=== PATIENT | female | born 1940 | race Caucasian/White ===

== ENCOUNTER 2019-09-05 13:28 | Emergency (ER) | payer MEDICARE ==
[2019-09-05 15:02] LABS: BASOPHILS % (AUTO) 0.5 % (0.0-5.0); HEMATOCRIT 37.1 % (36-48); MEAN CORPUSCULAR HEMOGLOBIN 32.8 pg (27.0-33.0); MEAN CORPUSCULAR HGB CONC 34.1 g/dL (32.0-36.0); MEAN CORPUSCULAR VOLUME 96.5 fL (79-99); NEUTROPHILS % (AUTO) 75.5 % (40.0-77.0); NUCLEATED RED BLOOD CELLS 0.1 % (0.0-0.19); PLATELET COUNT (AUTO) 252 K/uL (130-400); RED BLOOD CELL COUNT(AUTO) 3.85 MIL/uL (4.00-5.50); RED CELL DISTRIBUTION WIDTH 14.7 % (11.0-15.5); WHITE BLOOD COUNT (AUTO) 5.9 K/uL (4.8-10.8)
[2019-09-05 15:16] LABS: CREATININE 1.1 mg/dL (0.5-1.5); PARTIAL THROMBOPLASTIN TIME 55.3 SEC (26.3-35.5)
[2019-09-05 15:18] LABS: ALBUMIN 3.3 g/dL (3.5-5.0); BILIRUBIN,TOTAL 0.3 mg/dL (0.2-1.0); TOTAL PROTEIN, SERUM 6.8 g/dL (6.0-8.3)
[2019-09-05 15:46] LABS: INR 4.4 (0.85-1.15); PROTHROMBIN TIME 43.6 SEC (9.6-11.6)
[2019-09-05] MEDS ORDERED: KETOROLAC TROMETHAMINE 15MG/ML ONE (17:21)
[2019-09-05] MEDS ORDERED: DEXAMETHASONE SOD PHOSPHATE 4 MG/ML 1ML VIAL ONE (17:25)
== END 2019-09-05 18:18 | disposition home or self-care (01) ==
LOC: EDH 13:28
DX: M54.5 Low back pain (principal); M48.00 Spinal stenosis, site unspecified; R79.1 Abnormal coagulation profile; Z98.890 Other specified postprocedural states
CPT/HCPCS: 36415; 72131; 80053; 85025; 85610; 85730; 96374; 96375; 99285; J1100; J1885

== ENCOUNTER → 2019-09-22 | Outpatient (CLI) | payer MEDICARE | END | disposition home or self-care (01) | LOC: RAH 11:24 | PROVIDERS: ATTEND Nurse Practitioner Adult Health | DX: M48.061 Spinal stenosis, lumbar region without neurogenic claudication (principal); M51.36 Other intervertebral disc degeneration, lumbar region; M51.27 Other intervertebral disc displacement, lumbosacral region | CPT/HCPCS: 72148 ==

== ENCOUNTER 2019-10-18 12:20 | Emergency (ER) | payer MEDICARE ==
[2019-10-18] MEDS ORDERED: METHYLPREDNISOLONE SOD SUCC 125MG/2ML VIAL ONE (13:16)
== END 2019-10-18 13:28 | disposition home or self-care (01) ==
LOC: EDH 12:20
DX: B02.9 Zoster without complications (principal); Z85.3 Personal history of malignant neoplasm of breast; Z98.890 Other specified postprocedural states
CPT/HCPCS: 96372; 99283; J2930

== ENCOUNTER 2019-12-22 14:15 | Observation (INO) | payer MEDICARE ==
[~2019-12-22] VITALS: Ht 157.5 cm; Wt 67.3 kg
[2019-12-22 12:18] LABS: EOSINOPHILS % (AUTO) 1.7 % (0.0-8.0); HEMATOCRIT 38.6 % (36-48); LYMPHOCYTES % (AUTO) 23.4 % (21.0-51.0); MEAN CORPUSCULAR HEMOGLOBIN 30.8 pg (27.0-33.0); MEAN CORPUSCULAR HGB CONC 31.9 g/dL (32.0-36.0); MEAN CORPUSCULAR VOLUME 96.5 fL (79-99); MONOCYTES % (AUTO) 8.2 % (3.0-13.0); NEUTROPHILS % (AUTO) 65.5 % (40.0-77.0); PLATELET COUNT (AUTO) 248 K/uL (130-400); RED CELL DISTRIBUTION WIDTH 13.4 % (11.0-15.5); WHITE BLOOD COUNT (AUTO) 5.9 K/uL (4.8-10.8)
[2019-12-22 12:28] LABS: CREATININE 1.2 mg/dL (0.5-1.5); POTASSIUM 4.4 mmol/L (3.5-5.1)
[2019-12-22 12:30] LABS: INR 1.27 (0.85-1.15); PROTHROMBIN TIME 13.2 SEC (9.6-11.6)
[2019-12-22 13:22] VITALS: BP 142/65
[~2019-12-22 14:15] MED LIST: AEC81 PO; AMLO5TAB9 PO; BACL10TA PO; BRIM5DRO2 OP; CARV6.25 PO; CHOL400T33 PO; LATA2.5D2 OP; LEVO75TA10 PO; LOSA25TA41 PO; POTA20TA10 PO; WARF5TAB76 PO
--- NOTE | 2019-12-23 15:08 | NUR ---
RE: ABNORMAL LABS REPORTED ABNORMAL LABS (NA 146, PT 13.2,INR 1.27) TO DR LUJAN, RECEIVED ORDERS TO REPEAT PT/PTT AND BMP IN AM PF PROCEDURE
[2019-12-24] VITALS (24 sets, daily range): BP systolic 95–130; BP diastolic 35–85
[2019-12-24] MEDS: CEFAZOLIN SODIUM 1 GM VIAL IVP SCH ×5 (06:00→22:09)
[2019-12-24] MEDS ORDERED: SUCCINYLCHOLINE 200MG/10ML SYR ONE (06:52)
[2019-12-24] MEDS ORDERED: LIDOCAINE PF 2% 5ML ABBOJECT ONE (06:52)
[2019-12-24] MEDS ORDERED: NEOSTIGMINE 5MG/5ML SYR IV ONE (06:53)
[2019-12-24] MEDS ORDERED: ONDANSETRON HCL 4 MG/2 ML VIAL ONE (06:53)
[2019-12-24] MEDS ORDERED: PROPOFOL 10 MG/ML 20ML VIAL IV ONE (06:53)
[2019-12-24] MEDS ORDERED: GLYCOPYRROLATE 1 MG/5 ML SYRINGE ONE (06:53)
[2019-12-24] MEDS ORDERED: MIDAZOLAM HCL 1 MG/ML 2ML VIAL ONE (06:53)
[2019-12-24] MEDS ORDERED: ROCURONIUM 10MG/1ML SYR 10 MG/ML ML ONE (06:54)
[2019-12-24] MEDS ORDERED: FENTANYL CITRATE PF 50 MCG/1 ML 2ML VIAL ONE (06:54)
[2019-12-24] MEDS ORDERED: LACTATED RINGERS 1000ML 1,000 ML IV ONE ×2 (07:01→11:15)
[2019-12-24 07:05] LABS: CREATININE 1.1 mg/dL (0.5-1.5); POTASSIUM 3.9 mmol/L (3.5-5.1)
[2019-12-24 07:09] LABS: INR 1.07 (0.85-1.15); PROTHROMBIN TIME 11.2 SEC (9.6-11.6)
[2019-12-24] MEDS ORDERED: DURAMORPH PF1 MG/ML 10ML AMP IV ONE (08:36)
[2019-12-24] MEDS ORDERED: CEFAZOLIN SODIUM 1 GM VIAL ONE (08:36)
[2019-12-24] MEDS ORDERED: THROMBIN-JMI 20000 UNIT KIT TP ONE (08:36)
[2019-12-24] MEDS ORDERED: BUPIVACAINE/EPI/PF 0.25% 30ML VIAL IJ ONE (08:36)
[2019-12-24] MEDS ORDERED: MORPHINE SULFATE 2 MG/ML 1ML SYG IVP PRN (11:00)
[2019-12-24] MEDS ORDERED: PROMETHAZINE HCL 25 MG/ML 1ML AMPULE IM PRN (11:00)
[2019-12-24] MEDS ORDERED: SODIUM CHLORIDE 0.9% 10 ML VIAL IVP PRN (11:00)
[2019-12-24] MEDS ORDERED: GABA-529 PO (12:11)
--- NOTE | 2019-12-24 17:10 | NUR ---
[id number] patient signed ANDERSEN Letter, I faxed ANDERSEN Letter to [phone] and placed in chart under consent tab
[2019-12-24] MEDS: DEXAMETHASONE SOD PHOSPHATE 4 MG/ML 1ML VIAL IVP SCH ×2 (17:30→23:10)
[2019-12-24] MEDS: BACLOFEN 10 MG TABLET PO SCH (20:00)
[2019-12-24] MEDS: POTASSIUM BICARB/CIT AC 25 MEQ TABLET.EFF PO SCH (20:05)
[2019-12-24] MEDS: HYDROCODONE/ACETAMINOPHEN 5/325 MG TAB PO PRN ×2 (20:06→23:18)
[2019-12-24] MEDS: LACTATED RINGERS 1000ML 1,000 ML IV SCH ×2 (20:07→23:19)
[2019-12-24] MEDS ORDERED: LATANOPROST 2.5 ML DROPS OP SCH (21:00)
[2019-12-24] MEDS ORDERED: ASPIRIN 81 MG EC TAB PO SCH (21:00)
--- NOTE | 2019-12-24 22:00 | NUR ---
AMBULATION PATIENT ASSISTED OUT OF BED TO AMBULATE. PATIENT WAS ABLE TO AMBULATE WITH WALKER AND STAND BY ASSISTANCE. DRESSING TO LOWER BACK REINFORCED BECAUSE ORIGINAL DRESSING COMING OFF. ARVIN DRAIN IN PLACE TO LEFT LATERAL LUMBAR AREA WITH SANGUINOUS DRAINAGE NOTED. TRINIDAD CATHETER [address] DRAINING CLEAR YELLOW URINE. PATIENT HAS NO COMPLAINTS OR PAIN AT THIS TIME. AFTER WALK PATIENT ASSISTED BACK TO BED. 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 PATIENT DID AMBULATE APPROX. 50 FT.
[2019-12-25 03:20] VITALS: BP 126/70
[2019-12-25] MEDS: DEXAMETHASONE SOD PHOSPHATE 4 MG/ML 1ML VIAL IVP SCH (05:27)
[2019-12-25] MEDS ORDERED: LEVOTHYROXINE 75 MCG TABLET PO SCH (06:30)
--- NOTE | 2019-12-25 07:15 | NUR ---
DR. TAI LUJAN IN TO SEE PATIENT. NEW ORDERS RECEIVED AND CARRIED OUT.
[2019-12-25 07:47] VITALS: BP 141/79
[2019-12-25] MEDS ORDERED: AMLODIPINE BESYLATE 5 MG TAB PO SCH (09:00)
[2019-12-25] MEDS ORDERED: LOSARTAN 50 MG TABLET PO SCH (09:00)
[2019-12-25] MEDS ORDERED: CARVEDILOL 6.25 MG TABLET PO SCH (09:00)
[2019-12-25] MEDS: BACLOFEN 10 MG TABLET PO SCH (09:01)
[2019-12-25] MEDS: POTASSIUM BICARB/CIT AC 25 MEQ TABLET.EFF PO SCH (09:02)
--- NOTE | 2019-12-25 10:00 | NUR ---
INSTRUCTIONS DISCHARGE INSTRUCTIONS GIVEN TO PATIENT AND SPOUSE USING TEACH BACK. F/U APPOINTMENTS MADE. NEW PRESCRIPTION PLACED IN PACKET. IV REMOVED AND DRESSING TO LOWER BACK CHANGED PER MD ORDERS. ARVIN DRAIN WAS REMOVED WITH TIP INTACT. DIRECT PRESSURE APPLIED UNTIL BLEEDING CONTROLLED THEN SITE COVERED WITH GAUZE AND SECURED WITH TAPE. NO QUESTIONS OR CONCERNS VOICED. DUE TO VOID.
[2019-12-25 11:10] VITALS: BP 145/69
--- NOTE | 2019-12-25 12:33 | NUR ---
INITIAL Patient lives with spouse, Solomon Camp, . Tita Reyes from [place]. No home services. DME: walker with seat, wheelchair, BPM. Patient is independent and drives. PCP is Dr. Radha Blunt. Pharmacy is [facility] located on [facility]. DCP is home Addendum: 12/25/19 at 1236 by MISAEL HAN SS Amended: Links added.
== END 2019-12-25 11:58 | disposition home or self-care (01) ==
LOC: EDSTATUS 14:15 → DAHIP 12-24 05:56 → 4AH 12-24 11:34
PROVIDERS: ADMIT Neurological Surgery; ATTEND Neurological Surgery
DX: M48.061 Spinal stenosis, lumbar region without neurogenic claudication (principal); R53.1 Weakness; I45.10 Unspecified right bundle-branch block
CPT/HCPCS: 36415 ×2; 63047; 63048; 72020; 80048 ×2; 85025; 85610 ×2; 96374; 96375; 96376 ×2; A4213; A4215; A4221; A4222; A4223; A4344; A4600; A4649 ×4; A4663; G0378 ×21; J0330; J0690 ×3; J1100 ×3; J2001; J2250; J2274; J2405; J2704; J2710; J3010; J3490 ×2; J7030; J7120 ×3